=== PATIENT | female | born 1985 | race Caucasian/White ===

== ENCOUNTER 2018-03-25 16:45 | Emergency (ER) | payer MEDICAID ==
[2018-03-25 16:46] VITALS: BMI 27.4
[2018-03-25] MEDS ORDERED: Morphine 4 MG/ML VIAL IV STA ×2 (17:26→18:55)
[2018-03-25] MEDS ORDERED: Morphine 4 MG/ML VIAL ONE ×2 (17:53→19:52)
--- NOTE | 2018-03-25 18:06 | ED PDOC ---
HPI: General Adult Time Seen by Provider: 03/25/18 17:09 Chief Complaint (Nursing): Fever Chief Complaint (Provider): Fever History Per: Patient History/Exam Limitations: no limitations Onset/Duration Of Symptoms: Days (x 2) Current Symptoms Are (Timing): Still Present Additional Complaint(s): 32 year old female with no significant medical history presents to the ED for evaluation of subjective fever, sore throat and upper back pain since yesterday. Patient reports today, while eating, she developed left upper back pain with coughing that resolved, but has since returned. She admits to taking 875 mg of Amoxicillin last night and this morning which she had leftover from a previous illness and Robitussin OTC. Denies cough, vomiting, abdominal pain, dysuria and hematuria. PMD: Mike Mendoza Past Medical History Reviewed: Historical Data, Nursing Documentation, Vital Signs Vital Signs: Last Vital Signs Temp 98.5 F 03/25/18 17:00 Pulse 92 H 03/25/18 17:00 Resp 16 03/25/18 17:00 BP 139/83 03/25/18 17:00 Pulse Ox 98 03/25/18 17:00 - Medical History PMH: No Chronic Diseases Denies: Chronic Kidney Disease - Surgical History Surgical History: No Surg Hx - Family History Family History: States: Unknown Family Hx - Immunization History Hx Tetanus Toxoid Vaccination: No Hx Influenza Vaccination: No Hx Pneumococcal Vaccination: No - Home Medications Home Medications: Ambulatory Orders Medication Instructions Recorded Ogestrel-28 50 Mcg-0.5 mg 1 tab PO DAILY 12/01/12 Dicyclomine [Bentyl] 10 mg PO QID #20 cap 07/23/16 Ondansetron ODT [Zofran ODT] 1 odt PO BID PRN #6 odt 07/23/16 Ibuprofen [Motrin Tab] 600 mg PO Q6 #30 tab 03/25/18 predniSONE [predniSONE Tab] 60 mg PO DAILY #9 tab 03/25/18 - Allergies Allergies/Adverse Reactions: Allergies Allergy/AdvReac Type Severity Reaction Status Date / Time No Known Allergies Allergy Verified 03/25/18 17:00 Review of Systems ROS Statement: Except As Marked, All Systems Reviewed And Found Negative Constitutional: Positive for: Fever ENT: Positive for: Throat Pain Respiratory: Negative for: Cough Gastrointestinal: Negative for: Vomiting, Abdominal Pain Genitourinary Female: Negative for: Dysuria, Frequency, Incontinence, Hematuria Musculoskeletal: Positive for: Back Pain (left upper back) Physical Exam - Reviewed Nursing Documentation Reviewed: Yes Vital Signs Reviewed: Yes - Physical Exam Appears: Positive for: In Acute Distress (mild painful distress) Head Exam: Positive for: ATRAUMATIC, NORMAL INSPECTION, NORMOCEPHALIC Skin: Positive for: Normal Color, Warm, Dry. Negative for: Rash (or lesions) Eye Exam: Positive for: Normal appearance, EOMI, PERRL ENT: Positive for: Normal ENT Inspection Neck: Positive for: Normal, Painless ROM, Supple Cardiovascular/Chest: Positive for: Regular Rate, Rhythm. Negative for: Murmur Respiratory: Positive for: Normal Breath Sounds. Negative for: Wheezing, Respiratory Distress Gastrointestinal/Abdominal: Positive for: Normal Exam, Soft. Negative for: Tenderness Back: Positive for: Normal Inspection. Negative for: L CVA Tenderness, R CVA Tenderness, Vertebral Tenderness Extremity: Positive for: Normal ROM (x 4). Negative for: Deformity, Swelling Neurologic/Psych: Positive for: Alert, Oriented (x 3). Negative for: Motor/Sensory Deficits - Laboratory Results Result Diagrams: 03/25/18 17:45 03/25/18 17:45 - ECG O2 Sat by Pulse Oximetry: 98 (RA) Pulse Ox Interpretation: Normal Medical Decision Making Medical Decision Makin:26 Impression: fever; rule out viral syndrome, flu, strep, pneumonia Initial Plan: --EKG --CMP --CBC --D Dimer --PTT --PT --Urine dip --Urine preg --Influenza AB --Rapid Strep --Morphine 2 mg IV 18:45 --Labs reveal elevated WBC and D Dimer of 297. --CT Chest Angio 1899 --Patient signed out by this provider to Dr. Pop pending CTA Chest and reeval uation. Scribe Attestation: Documented by Adelina Nunes acting as a scribe for Lora Krishnamurthy MD Provider Scribe Attestation: All medical record entries made by the Scribe were at my direction and personally dictated by me. I have reviewed the chart and agree that the record accurately reflects my personal performance of the history, physical exam, medical decision making, and the department course for this patient. I have also personally directed, reviewed, and agree with the discharge instructions and disposition. Disposition - Clinical Impression Clinical Impression: Upper respiratory infection - Patient ED Disposition Is Patient to be Admitted: Transfer of Care - Disposition Referrals: Mike Mendoza, SURYA, C PROGRAMMER [Family Provider] - Disposition: Transfer of Care Disposition Time: 19:00 Condition: STABLE Prescriptions: Ibuprofen [Motrin Tab] 600 mg PO Q6 #30 tab predniSONE [predniSONE Tab] 60 mg PO DAILY #9 tab Instructions: Viral Upper Respiratory Infection, Adult (DC) Forms: [employer] (Urdu) Patient Signed Over To: Justin Pop
[2018-03-25 18:13] LABS: BASO # 0.1 K/uL (0.0-0.2); BASO % 0.4 % (0.0-2.0); EOS # 0.2 K/uL (0.0-0.7); EOS % 1.5 % (0.0-4.0); HEMOGLOBIN 13.7 g/dL (12.0-16.0); LYMPH # 2.3 K/uL (1.0-4.3); LYMPH % 17.3 % (20.0-40.0); MEAN CELL VOLUME 79.5 fl (81.0-99.0); MEAN CORPUSCULAR HEMOGLOBIN 26.3 pg (27.0-31.0); MEAN PLATELET VOLUME 8.5 fl (7.2-11.7); MONO % 7.6 % (0.0-10.0); NEUT # 9.6 K/uL (1.8-7.0); NEUT % 73.2 % (50.0-75.0); NRBC % 0.1 % (0.0-0.0); RBC 5.23 Mil/uL (3.80-5.20); WHITE BLOOD COUNT 13.1 K/uL (4.8-10.8)
[2018-03-25 18:17] LABS: PROTHROMBIN TIME 11.7 Seconds (9.8-13.1)
[2018-03-25 18:21] LABS: SQUAMOUS EPITHIAL 2 /hpf (0-5); URINE BACTERIA RARE (<OCC); URINE BILIRUBIN NEGATIVE (NEGATIVE); URINE BLOOD NEGATIVE (NEGATIVE); URINE CLARITY SLIGHTY-CLOUDY (Clear); URINE COLOR YELLOW (YELLOW); URINE GLUCOSE (UA) NEG (NEGATIVE); URINE LEUKOCYTE ESTERASE NEG Leu/uL (Negative); URINE PROTEIN NEGATIVE (NEGATIVE); URINE UROBILINOGEN 0.2-1.0 mg/dL (0.2-1.0)
[2018-03-25 18:28] LABS: ALB/GLOB RATIO 1.1 (1.0-2.1); ALT/SGPT 36 U/L (9-52); AST/SGOT 27 U/L (14-36); BLOOD UREA NITROGEN 17 mg/dl (7-17); CALCIUM 8.8 mg/dL (8.4-10.2); GFR NON-AFRICAN AMERICAN > 60
--- NOTE | 2018-03-25 19:19 | ED PDOC ---
- Laboratory Results Result Diagrams: 03/25/18 17:45 03/25/18 17:45 Lab Results: PT 11.7 Seconds (9.8-13.1) 03/25/18 17:45 INR 1.0 03/25/18 17:45 APTT 31.0 Seconds (25.6-37.1) 03/25/18 17:45 D-Dimer, Quantitative 297 ng/mlDDU (0-230) H 03/25/18 17:45 Total Bilirubin 0.2 mg/dl (0.2-1.3) 03/25/18 17:45 AST 27 U/L (14-36) 03/25/18 17:45 ALT 36 U/L (9-52) 03/25/18 17:45 Alkaline Phosphatase 92 U/L (38-126) 03/25/18 17:45 Total Protein 7.8 G/DL (6.3-8.2) 03/25/18 17:45 Albumin 4.0 g/dL (3.5-5.0) 03/25/18 17:45 Globulin 3.8 gm/dL (2.2-3.9) 03/25/18 17:45 Albumin/Globulin Ratio 1.1 (1.0-2.1) 03/25/18 17:45 Urine Color Yellow (YELLOW) 03/25/18 17:45 Urine Clarity Slighty-cloudy (Clear) 03/25/18 17:45 Urine pH 6.0 (5.0-8.0) 03/25/18 17:45 Ur Specific [place] 1.029 (1.003-1.030) 03/25/18 17:45 Urine Protein Negative mg/dL (NEGATIVE) 03/25/18 17:45 Urine Glucose (UA) Neg mg/dL (NEGATIVE) 03/25/18 17:45 Urine Ketones Negative mg/dL (NEGATIVE) 03/25/18 17:45 Urine Blood Negative (NEGATIVE) 03/25/18 17:45 Urine Nitrate Negative (NEGATIVE) 03/25/18 17:45 Urine Bilirubin Negative (NEGATIVE) 03/25/18 17:45 Urine Urobilinogen 0.2-1.0 mg/dL (0.2-1.0) 03/25/18 17:45 Ur Leukocyte Esterase Neg Amanda/uL (Negative) 03/25/18 17:45 Urine RBC (Auto) 4 /hpf (0-3) H 03/25/18 17:45 Urine Microscopic WBC 1 /hpf (0-5) 03/25/18 17:45 Ur Squamous Epith Cells 2 /hpf (0-5) 03/25/18 17:45 Urine Bacteria Rare (<OCC) 03/25/18 17:45 - ECG O2 Sat by Pulse Oximetry: 98 (RA) Pulse Ox Interpretation: Normal Medical Decision Making Medical Decision Makin:00 --Patient signed out to this provider by Dr. Krishnamurthy pending CTA and reevaluation. 20:53 CT Angio Chest FINDINGS: PULMONARY ARTERIES No evidence of central or segmental pulmonary embolism is seen. AORTA There is no evidence for aneurysm or dissection of the thoracic aorta. LUNGS The lungs appear clear. PLEURAL SPACES No pneumothorax evident. No pleural effusions. HEART Heart size is within normal limits. No significant pericardial effusion. LYMPH NODES No lymphadenopathy is evident. BONES No focal osseous abnormality or acute fracture. UPPER ABDOMEN Images of the upper abdomen are unremarkable. IMPRESSION: 1. Unremarkable pulmonary embolism protocol CTA of the chest. 21:38 Patient is aware of results. She reports no complaints at this time and is stable for discharge. Advised patient to discontinue Augmentin and instead use steroids/NSAIDs. Toradol/prednisone ordered prior to discharge. Return precautions provided. Advised patient to followup with Mike Mendoza at [facility]. ------ Scribe Attestation: Documented by Adelina Nunes acting as a scribe for Justin Pop MD Provider Scribe Attestation: All medical record entries made by the Scribe were at my direction and personally dictated by me. I have reviewed the chart and agree that the record accurately reflects my personal performance of the history, physical exam, medical decision making, and the department course for this patient. I have also personally directed, reviewed, and agree with the discharge instructions and disposition. Disposition - Clinical Impression Clinical Impression: Upper respiratory infection - POA Present On Arrival: None - Disposition Referrals: Mike Mendoza, SURYA, CONSULTING HR PROFESSIONAL [Family Provider] - Disposition: Routine/Home Disposition Time: 21:38 Condition: STABLE Prescriptions: RX: Ibuprofen [Motrin Tab] 600 mg PO Q6 #30 tab RX: predniSONE [predniSONE Tab] 60 mg PO DAILY #9 tab Instructions: Viral Upper Respiratory Infection, Adult (DC) Forms: [employer] (Danish)
[2018-03-25] MEDS ORDERED: Sodium Chloride 0.9% 50 ML IV ONE (19:49)
[2018-03-25] MEDS ORDERED: Iodixanol 320 MG/ML 100 ML BOTTLE IV ONE (19:49)
[2018-03-25 21:38] VITALS: BP 124/74; PULSE 75; RESP 18; TEMP 98.4
[2018-03-25 21:40] VITALS: O2SAT 98
--- NOTE | 2018-03-26 12:18 | CT ---
Date of service: 03/25/2018 PROCEDURE: CT Chest with contrast (Pulmonary Angiogram) HISTORY: Pleuritic back pain COMPARISON: None available. TECHNIQUE: Axial computed tomography images were obtained of the chest in the pulmonary arterial phase of enhancement. Coronal and sagittal reformatted images were created and reviewed. Intravenous contrast dose: 80 cc Visipaque 320. Mean Hounsfield value in the main pulmonary artery: 211.96 Radiation dose: Total exam DLP = 57648 mGy-cm. This CT exam was performed using one or more of the following dose reduction techniques: Automated exposure control, adjustment of the mA and/or kV according to patient size, and/or use of iterative reconstruction technique. FINDINGS: PULMONARY ARTERIES: Unremarkable. No pulmonary embolism. AORTA: No acute findings. No thoracic aortic aneurysm. No atherosclerotic calcification or mural plaque present. LUNGS: Unremarkable. No nodule, mass or pulmonary consolidation. PLEURAL SPACES: Unremarkable. No effusion or pneumothorax. HEART: Unremarkable. No cardiomegaly. No significant pericardial effusion. LYMPH NODES: No lymphadenopathy. BONES, CHEST WALL: Unremarkable. No fracture or destructive lesion OTHER FINDINGS: Unremarkable. IMPRESSION: Unremarkable CT pulmonary angiogram. No pulmonary embolus. Concordant results (preliminary interpretation) provided by [facility]. Procedure Completed: 20:02. Preliminary Report: Dictated and Authenticated: 20:52. Final Interpretation: 12:14. 2018
== END 2018-03-25 22:02 | disposition home or self-care (01) ==
LOC: H.ER 16:45
DX: J06.9 Acute upper respiratory infection, unspecified (principal)
CPT/HCPCS: 71275; 80053; 81003; 81025; 85025; 85378; 85610; 85730; 87070; 87430; 87804; 96374; 99283; J1885; J2270; Q9967